=== PATIENT | female | born 1990 | race Caucasian/White ===

== ENCOUNTER 2021-04-07 16:39 | Emergency (ER) | payer OTHER ==
[2021-04-07 16:45] VITALS: PULSE 89; TEMP 98.1; BMI 40.1
[2021-04-07] MEDS ORDERED: ASPIRIN 81 MG CHEWABLE TABLETS PO ONE (17:17)
[2021-04-07] MEDS ORDERED: ASPIRIN 81 MG CHEWABLE TABLETS ONE (17:45)
[2021-04-07 18:18] LABS: BASO % 0.9 % (0-2.0); EOS % 4.3 % (0-4.5); HEMATOCRIT 42.5 % (32.4-45.2); HEMOGLOBIN 14.4 GM/dL (10.7-15.3); LYMPH % 31.8 % (8-40); MCH 30.3 pg (25.7-33.7); MEAN CELL VOLUME 89.3 fl (80-96); MEAN PLT VOLUME 8.2 fl (7.5-11.1); MONO % 7.8 % (3.8-10.2); NEUT % 55.2 % (42.8-82.8); PLATELET COUNT 320 K/MM3 (134-434); RBC 4.76 M/mm3 (3.60-5.2); RDW 13.9 % (11.6-15.6); WHITE BLOOD COUNT 7.5 K/mm3 (4.0-10.0)
[2021-04-07 18:26] LABS: INR 0.89 (0.83-1.09)
[2021-04-07 18:28] LABS: ACTIVATED PTT 34.8 SECONDS (25.2-36.5)
[2021-04-07 18:30] LABS: CHLORIDE 104 mmol/L (98-107); SODIUM 139 mmol/L (136-145)
[2021-04-07 18:32] LABS: ANION GAP 8 MMOL/L (8-16); BLOOD UREA NITROGEN 13.6 mg/dL (7-18); CO2 27 mmol/L (21-32); MAGNESIUM 2.2 mg/dL (1.8-2.4)
[2021-04-07 18:33] LABS: GLUCOSE,RANDOM 89 mg/dL (74-106)
[2021-04-07 18:35] LABS: SGPT/ALT 109 U/L (13-61)
[2021-04-07 18:36] LABS: CREATININE 0.8 mg/dL (0.55-1.3); SGOT/AST 73 U/L (15-37)
[2021-04-07 18:37] LABS: BILIRUBIN,TOTAL 0.4 mg/dL (0.2-1); TOT PROT 8.9 g/dl (6.4-8.2)
[2021-04-07 18:38] LABS: ALK PHOS 152 U/L (45-117)
[2021-04-07 21:35] VITALS: BP 130/86
== END 2021-04-07 21:44 | disposition home or self-care (01) ==
LOC: JER 16:39
DX: R07.9 Chest pain, unspecified (principal); R94.5 Abnormal results of liver function studies; R16.0 Hepatomegaly, not elsewhere classified
CPT/HCPCS: 36415; 71046-TC-FY; 76705-TC; 80053; 82550; 82553; 83735; 84484; 85025; 85610; 85730; 93005; 93010; 99284-25

== ENCOUNTER 2022-05-13 23:53 | Emergency (ER) | payer OTHER ==
[2022-05-14 00:05] VITALS: BP 134/88; PULSE 100; BMI 41.3
[2022-05-14] MEDS ORDERED: FAMOTIDINE 20 MG/50 ML IVPB 20 MG/50 ML MG IVPB ONE ×2 (02:01→02:13)
[2022-05-14] MEDS ORDERED: ONDANSETRON 4 MG/2 ML VIAL IVPUSH ONE (02:01)
[2022-05-14] MEDS ORDERED: KETOROLAC TROMETHAMINE 30 MG/1 ML VIAL IVPUSH ONE (02:05)
[2022-05-14] MEDS ORDERED: ONDANSETRON 4 MG/2 ML VIAL ONE (02:15)
[2022-05-14] MEDS ORDERED: KETOROLAC TROMETHAMINE 30 MG/1 ML VIAL ONE (02:15)
[2022-05-14 02:22] LABS: URINE APPEARANCE CLEAR; URINE BILIRUBIN NEGATIVE (NEGATIVE); URINE COLOR YELLOW; URINE GLUCOSE (UA) 3+ (NEGATIVE); URINE KETONE NEGATIVE (NEGATIVE); URINE LEUK ESTERASE NEGATIVE (NEGATIVE); URINE NITRITE NEGATIVE (NEGATIVE); URINE PROTEIN NEGATIVE (NEGATIVE); URINE UROBILINOGEN 0.2 mg/dL (0.2-1.0)
[2022-05-14 02:43] LABS: BASO % 1.2 % (0-2.0); EOS % 1.3 % (0-4.5); HEMATOCRIT 39.1 % (32.4-45.2); HEMOGLOBIN 13.5 GM/dL (10.7-15.3); LYMPH % 22.6 % (8-40); MCH 30.1 pg (25.7-33.7); MCHC 34.6 g/dl (32.0-36.0); MEAN CELL VOLUME 86.9 fl (80-96); MEAN PLT VOLUME 7.1 fl (7.5-11.1); MONO % 7.8 % (3.8-10.2); NEUT % 67.1 % (42.8-82.8); PLATELET COUNT 364 10^3/uL (134-434); RBC 4.51 M/mm3 (3.60-5.2); WHITE BLOOD COUNT 9.6 K/mm3 (4.0-10.0)
[2022-05-14 03:04] LABS: CALCIUM 9.1 mg/dL (8.5-10.1)
[2022-05-14 03:05] LABS: ALBUMIN 4.5 g/dl (3.4-5.0); BLOOD UREA NITROGEN 12.8 mg/dL (7-18)
[2022-05-14 03:08] LABS: CREATININE 0.7 mg/dL (0.55-1.3)
[2022-05-14 03:10] LABS: BILIRUBIN,TOTAL 0.2 mg/dL (0.2-1); TOT PROT 8.4 g/dl (6.4-8.2)
[2022-05-14 04:12] VITALS: TEMP 97.8
== END 2022-05-14 05:30 | disposition left against medical advice (07) ==
LOC: JERFT 23:53 → JER 23:53
PROC: 3E033GC Introduction of Other Therapeutic Substance into Peripheral Vein, Percutaneous Approach (ICD-10-PCS; principal; 2022-05-13)
DX: K21.00 Gastro-esophageal reflux disease with esophagitis, without bleeding (principal)
CPT/HCPCS: 36415; 71046-TC-FY; 74176-TC; 80053; 81003; 84484; 85025; 93005; 93010; 96365; 96375; 99285-25

== ENCOUNTER 2022-09-08 00:16 | Emergency (ER) | payer OTHER ==
[2022-09-08 00:24] VITALS: BP 144/92; PULSE 86; RESP 18; TEMP 98; BMI 38.6
[2022-09-08] MEDS ORDERED: ACETAMINOPHEN 325 MG TABLET (FP) PO ONE (03:01)
[2022-09-08] MEDS ORDERED: IBUPROFEN 400 MG TABLET (FP) PO ONE (03:01)
[2022-09-08] MEDS ORDERED: INDAPAMIDE 2.5 MG TABLET PO ONE (03:01)
== END 2022-09-08 04:03 | disposition home or self-care (01) ==
LOC: JER 00:16
DX: H10.33 Unspecified acute conjunctivitis, bilateral (principal); R07.0 Pain in throat
CPT/HCPCS: 99283-25

== ENCOUNTER 2022-09-29 08:51 | Emergency (ER) | payer OTHER ==
[2022-09-29 08:56] VITALS: BP 137/85; PULSE 92; RESP 18; TEMP 97.5; BMI 38.2
[2022-09-29] MEDS ORDERED: IBUPROFEN 600 MG TABLET (FP) PO ONE ×2 (09:32→09:48)
== END 2022-09-29 11:02 | disposition home or self-care (01) ==
LOC: JER 08:51 → JERFT 08:51
DX: J02.9 Acute pharyngitis, unspecified (principal)
CPT/HCPCS: 87651; 99283-25

== ENCOUNTER 2025-07-27 10:52 | Emergency (ER) | payer OTHER ==
[2025-07-27 11:00] VITALS: BMI 38.2
[2025-07-27] MEDS: LACTATED RINGERS SOLUTION 1000 ML INFUS.BAG IV ONE (11:58)
[2025-07-27 12:01] LABS: ABSOLUTE IMMATURE GRANULOCYTES 0.02 x10^3/uL (0.0-0.031); BASOPHILS # 0.04 x10^3/uL (0.01-0.08); EOSINOPHIL % 2.8 % (0.7-5.8); EOSINOPHILS # 0.16 x10^3/uL (0.04-0.36); MCHC 33.5 g/dl (32.2-35.5); MEAN CELL VOLUME 89.4 fl (79.4-94.8); MEAN PLT VOLUME 8.9 fl (9.4-12.3); MONOCYTE # 0.46 x10^3/uL (0.24-0.86); MONOCYTE % 8.1 % (4.7-12.5); RDW 13.2 % (12.1-16.8)
[2025-07-27] MEDS ORDERED: ACETAMINOPHEN INJECTION 100 ML ONE (12:16)
[2025-07-27] MEDS: ACETAMINOPHEN 1000 MG/100 ML BAG IVPB ONE (12:22)
[2025-07-27 12:24] LABS: GLUCOSE,RANDOM 105.0 mg/dL (74-106); TOT PROT 7.5 g/dl (6.4-8.2)
[2025-07-27 12:26] LABS: CO2 18.0 mmol/L (21-32)
[2025-07-27 12:27] LABS: ALK PHOS 97.0 U/L (40-150)
[2025-07-27 12:30] LABS: CREATININE 0.68 mg/dL (0.55-1.3); SGOT/AST 62.0 U/L (5-34); SGPT/ALT 86.0 U/L (0-55)
[2025-07-27] MEDS ORDERED: KETOROLAC TROMETHAMINE 15 MG/ML VIAL ONE (12:49)
[2025-07-27] MEDS: KETOROLAC TROMETHAMINE 15 MG/ML VIAL IVPUSH ONE (12:59)
[2025-07-27 13:00] VITALS: PULSE 68
[2025-07-27 13:12] LABS: HCG,QUALITATIVE URINE Negative
[2025-07-27 13:13] LABS: EPI CELLS 8 /uL (0-25.1); HYALINE CASTS 0 /uL (0-3.1); URINE APPEARANCE CLEAR; URINE BACTERIA 309 /uL (0-1359); URINE BILIRUBIN NEGATIVE (NEGATIVE); URINE COLOR YELLOW; URINE GLUCOSE (UA) NEGATIVE (NEGATIVE); URINE KETONE NEGATIVE (NEGATIVE); URINE LEUK ESTERASE 1+ (NEGATIVE); URINE NITRITE NEGATIVE (NEGATIVE); URINE PROTEIN NEGATIVE (NEGATIVE); URINE RBC 23 /uL (0-23.9); URINE UROBILINOGEN 0.2 mg/dL (0.2-1.0); URINE WBC 23 /uL (0-25.8)
[2025-07-27 15:47] VITALS: BP 119/80; RESP 16; TEMP 98.2
[2025-07-27 16:56] LABS: HIV INTERPRETATION NEGATIVE (NEGATIVE)
[2025-07-27 16:57] LABS: HCV DIAGNOSTIC IN-HOUSE W/RFLX NON-REACTIVE (NONREACTIVE)
== END 2025-07-27 15:51 | disposition home or self-care (01) ==
LOC: JER 10:52
PROC: 3E033NZ Introduction of Analgesics, Hypnotics, Sedatives into Peripheral Vein, Percutaneous Approach (ICD-10-PCS; principal; 2025-07-27)
PROC: 3E0333Z Introduction of Anti-inflammatory into Peripheral Vein, Percutaneous Approach (ICD-10-PCS; 2025-07-27)
DX: R07.89 Other chest pain (principal); K76.0 Fatty (change of) liver, not elsewhere classified; M25.511 Pain in right shoulder; R11.0 Nausea; R19.7 Diarrhea, unspecified; R05.9 Cough, unspecified; R68.83 Chills (without fever); M54.2 Cervicalgia; R10.13 Epigastric pain; R06.02 Shortness of breath; B34.9 Viral infection, unspecified
CPT/HCPCS: 36415; 71045-TC-FY; 76705-TC; 80053; 81003; 83690; 83735; 84484; 84703; 85025; 86803; 87086; 87389; 87637-QW; 87651; 93005; 93010; 99285-25